=== PATIENT | male | born 1960 | race Hispanic/Latino ===

== ENCOUNTER 2016-04-15 08:47 | Outpatient (CLI) | payer OTHER ==
[2016-04-15 12:32] LABS: ALT (SGPT) 56 U/L (0-55); AST (SGOT) 28 U/L (5-34); Alkaline Phosphatase 95 U/L (40-150); Bilirubin, Direct 0.3 mg/dL (0.1-0.3); Bilirubin, Total 0.8 mg/dL (0.2-1.2); LDL Cholesterol, Calculated 94 mg/dL
== END 2016-04-15 08:48 ==
LOC: NAVSJIPCSP 08:47
PROVIDERS: ATTEND Internal Medicine
DX: E78.5 Hyperlipidemia, unspecified (principal); R74.0 Nonspecific elevation of levels of transaminase and lactic acid dehydrogenase [LDH]
CPT/HCPCS: 36415; 80061; 80076

== ENCOUNTER 2016-11-30 09:51 | Outpatient (CLI) | payer OTHER ==
[2016-11-30 13:24] LABS: Cardiac Risk 4.9 (Less than 4.5)
== END 2016-11-30 09:52 | disposition home or self-care (01) ==
LOC: NAVSJIPCSP 09:51
PROVIDERS: ATTEND Internal Medicine
DX: E78.5 Hyperlipidemia, unspecified (principal); Z79.899 Other long term (current) drug therapy
CPT/HCPCS: 36415; 80061

== ENCOUNTER 2021-07-08 08:08 | Emergency (ER) | payer BC, OTHER ==
[2021-07-08] MEDS ORDERED: Bacitracin 1 PK ONE (08:34)
== END 2021-07-08 09:05 | disposition home or self-care (01) ==
LOC: NAV ERS 08:08
DX: S50.11XA Contusion of right forearm, initial encounter (principal); S70.11XA Contusion of right thigh, initial encounter; M54.6 Pain in thoracic spine; W01.10XA Fall on same level from slipping, tripping and stumbling with subsequent striking against unspecified object, initial encounter; Z79.899 Other long term (current) drug therapy; E11.9 Type 2 diabetes mellitus without complications; E78.5 Hyperlipidemia, unspecified; E78.00 Pure hypercholesterolemia, unspecified; I10 Essential (primary) hypertension